=== PATIENT | male | born 1950 | race Caucasian/White ===

== ENCOUNTER 2017-02-14 10:50 | Observation (INO) | payer OTHER ==
[~2017-02-14] VITALS: Ht 177.8 cm; Wt 83.0 kg
[2017-02-14 10:51] VITALS: BP 154/84; PULSE 68; RESP 20; TEMP 98; O2SAT 99
--- NOTE | 2017-02-14 11:42 | RADRPT ---
EXAM DATE/TIME: 02/14/2017 11:32 [place] COMPARISON: No previous studies available for comparison. INDICATIONS : Dizziness and weakness today. Chest pain and high blood pressure MEDICAL HISTORY : Hypertension. Hypercholesterolemia. SURGICAL HISTORY : None. ENCOUNTER: Initial ACUITY: 2 days PAIN SCORE: 0/10 LOCATION: Bilateral chest FINDINGS: PA and lateral views of the chest demonstrate the lungs to be symmetrically aerated without evidence of mass, infiltrate or effusion. The cardiomediastinal contours are unremarkable. Osseous structure s are intact. CONCLUSION: No acute disease. Miguel Carlos MD FACR on February 14, 2017 at 11:41 Board Certified Radiologist. This report was verified electronically.
[2017-02-14 12:07] LABS: AUTOMATED NEUTROPHIL # 3.6 TH/MM3 (1.8-7.7); BASOPHIL % 0.3 % (0.0-2.0); EOSINOPHIL % 0.5 % (0.0-4.0); HEMATOCRIT 44.1 % (39.0-51.0); HEMO FLAGS DIFF FINAL; LYMPH % 19.5 % (9.0-44.0); MEAN CELL VOLUME 88.6 FL (80.0-100.0); MEAN CORPUSCULAR HEMOGLOBIN 30.2 PG (27.0-34.0); MEAN CORPUSCULAR HGB CONC 34.1 % (32.0-36.0); MONO % 10.8 % (0.0-8.0); NEUT % 68.9 % (16.0-70.0); PLATELET COUNT 191 TH/MM3 (150-450); RED BLOOD COUNT 4.98 MIL/MM3 (4.50-5.90); RED CELL DISTRIBUTION WIDTH 13.5 % (11.6-17.2); WHITE BLOOD COUNT 5.3 TH/MM3 (4.0-11.0)
[2017-02-14 12:11] LABS: APTT (PATIENT) 24.8 SEC (24.3-30.1); PROTHROMBIN TIME - PATIENT 10.8 SEC (9.8-11.6)
[2017-02-14 12:23] LABS: ANION GAP 8 MEQ/L (5-15); AST (GOT) 22 U/L (15-37); BICARBONATE 27.5 MEQ/L (21.0-32.0); BLOOD UREA NITROGEN 15 MG/DL (7-18); CHLORIDE 104 MEQ/L (98-107); GLOMERULAR FILTRATION RATE 49 ML/MIN (>89); MAGNESIUM 2.5 MG/DL (1.5-2.5); POTASSIUM 4.3 MEQ/L (3.5-5.1); SODIUM (NA) 139 MEQ/L (136-145)
[2017-02-14 12:29] LABS: ALKALINE PHOSPHATASE 65 U/L (45-117); ALT (GPT) 34 U/L (12-78); CREATINE KINASE 170 U/L (39-308); TOTAL BILIRUBIN ADULT 0.4 MG/DL (0.2-1.0)
[2017-02-14 14:46] VITALS: BP 185/86; PULSE 65; RESP 19; O2SAT 98
[2017-02-14] MEDS ORDERED: ASPIRIN 325 MG TAB PO ONE (15:15)
--- NOTE | 2017-02-14 15:19 | PD ---
HPI Chief Complaint: Chest Pain Time Seen by Provider: 14:52 Travel History International Travel<30 days: No Contact w/Intl Traveler<30days: No Traveled to known affect area: No History of Present Illness HPI 66yo M with no significant PMH presents to the ED with c/o midsternal chest pain yesterday. States it lasted a few hours and checked his blood pressure and found it to be elevated with systolic in the 160s. Pt denies any radiation of pain, sob, n/v, abdominal pain, focal weakness or numbness. Chest pain resolved on its own. Pt woke up this morning and does not feel well. Cannot explain but denies any chest pain. Pt went to PMD Dr. Ricks's office and was sent to the ED for further evaluation. PFSH Past Medical History Diabetes: No ?: Not Social History Alcohol Use: No Tobacco Use: No Substance Use: No Allergies-Medications (Allergen,Severity, Reaction): Coded Allergies: No Known Allergies (Unverified , 02/14/17) Reported Meds & Prescriptions Reported Meds & Active Scripts Active No Active Prescriptions or Reported Medications Review of Systems Except as stated in HPI: all other systems reviewed are Neg Physical Exam Narrative GENERAL: 66yo M not in distress. SKIN: Focused skin assessment warm/dry. HEAD: Atraumatic. Normocephalic. EYES: Pupils equal and round. No scleral icterus. No injection or drainage. ENT: No nasal bleeding or discharge. Mucous membranes pink and moist. NECK: Trachea midline. No JVD. CARDIOVASCULAR: Regular rate and rhythm. No murmur appreciated. RESPIRATORY: No accessory muscle use. Clear to auscultation. Breath sounds equal bilaterally. GASTROINTESTINAL: Abdomen soft, non-tender, nondistended. MUSCULOSKELETAL: No obvious deformities. No clubbing. No cyanosis. No edema. NEUROLOGICAL: Awake and alert. No obvious cranial nerve deficits. Motor grossly within normal limits. Normal speech. PSYCHIATRIC: Appropriate mood and affect; insight and judgment normal. Data Data Last Documented VS Vital Signs Date Time Temp Pulse Resp B/P Pulse Ox O2 Delivery O2 Flow Rate FiO2 02/14/17 14:46 65 19 185/86 98 Room Air 02/14/17 10:51 98.0 Orders Electrocardiogram (02/14/17 11:18) Ckmb (Isoenzyme) Profile (02/14/17 11:18) Complete Blood Count With Diff (02/14/17 11:18) Comprehensive Metabolic Panel (02/14/17 11:18) Magnesium (Mg) (02/14/17 11:18) Prothrombin Time / Inr (Pt) (02/14/17 11:18) Act Partial Throm Time (Ptt) (02/14/17 11:18) Troponin I (02/14/17 11:18) Chest, Pa & Lat (02/14/17 11:18) CKMB (02/14/17 11:46) CKMB% (02/14/17 11:46) Aspirin (Aspirin) (02/14/17 15:15) Admit Order (Ed Use Only) (02/14/17 15:22) Labs Laboratory Tests Test 02/14/17 11:46 White Blood Count 5.3 TH/MM3 Red Blood Count 4.98 MIL/MM3 Hemoglobin 15.1 GM/DL Hematocrit 44.1 % Mean Corpuscular Volume 88.6 FL Mean Corpuscular Hemoglobin 30.2 PG Mean Corpuscular Hemoglobin 34.1 % Concent Red Cell Distribution Width 13.5 % Platelet Count 191 TH/MM3 Mean Platelet Volume 9.1 FL Neutrophils (%) (Auto) 68.9 % Lymphocytes (%) (Auto) 19.5 % Monocytes (%) (Auto) 10.8 % Eosinophils (%) (Auto) 0.5 % Basophils (%) (Auto) 0.3 % Neutrophils # (Auto) 3.6 TH/MM3 Lymphocytes # (Auto) 1.0 TH/MM3 Monocytes # (Auto) 0.6 TH/MM3 Eosinophils # (Auto) 0.0 TH/MM3 Basophils # (Auto) 0.0 TH/MM3 CBC Comment DIFF FINAL Differential Comment Prothrombin Time 10.8 SEC Prothromb Time International 1.0 RATIO Ratio Activated Partial 24.8 SEC Thromboplast Time Sodium Level 139 MEQ/L Potassium Level 4.3 MEQ/L Chloride Level 104 MEQ/L Carbon Dioxide Level 27.5 MEQ/L Anion Gap 8 MEQ/L Blood Urea Nitrogen 15 MG/DL Creatinine 1.44 MG/DL Estimat Glomerular Filtration 49 ML/MIN Rate Random Glucose 95 MG/DL Calcium Level 9.3 MG/DL Magnesium Level 2.5 MG/DL Total Bilirubin 0.4 MG/DL Aspartate Amino Transf 22 U/L (AST/SGOT) Alanine Aminotransferase 34 U/L (ALT/SGPT) Alkaline Phosphatase 65 U/L Total Creatine Kinase 170 U/L Creatine Kinase MB 1.0 NG/ML Troponin I LESS THAN 0.02 NG/ML Total Protein 7.9 GM/DL Albumin 4.2 GM/DL [facility] Medical Decision Making Medical Screen Exam Complete: Yes Emergency Medical Condition: Yes Interpretation(s) EKG: Sinus bradycardia at 59bpm. LAD. No ST segment elevation or depression. Differential Diagnosis ACS vs. musculoskeletal pain Narrative Course 66yo M with chest pain yesterday that lasted a few hours. Pt has never had similar chest pain or any cardiac history. Pt took aspirin 81mg at home so gave another 81mg in the ED. Pt saw his PMD today and he was concerned so sent him here to the ED. Labs reviewed, no leukocytosis. Troponin negative. Creatinine mildly elevated at 1.44. No prior to compare. CXR showed no acute disease. Given that pt has no prior cardiac work up, will admit pt to chest pain center for serial EKG and cardiac enzymes. Diagnosis Primary Impression: Chest pain Qualified Code: R07.9 - Chest pain, unspecified type Admitting Information Admitting Physician Requests: Observation Scripts No Active Prescriptions or Reported Meds Andreia Amin DO Feb 14, 2017 15:19 Andreia Amin DO Feb 14, 2017 15:19
[2017-02-14 16:00] VITALS: BP 156/80; PULSE 64; RESP 18; O2SAT 98
--- NOTE | 2017-02-14 16:35 | MH ---
cc: LIZBET DAWKINS MD DATE OF ADMISSION: 02/14/2017 HISTORY OF PRESENT ILLNESS This is a 66-year-old gentleman who presented to the hospital with chest discomfort. 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 His discomfort lasted for several hours and after he started work eventually it was relieved spontaneously. He worked this morning and still did not feel right. He saw his primary care doctor who suggested he come to the hospital for further evaluation. He feels well now. No associated shortness of breath, diaphoresis or nausea was present and he related to exacerbation by exercise or relief by rest. On presentation to the hospital, his electrocardiogram is normal and initial troponin is otherwise unremarkable. His risk factors for coronary disease include a family history with a brother who at 55 years of age of a myocardial infarction, although that brother had type 2 diabetes and was a heavy smoker. A second brother at age 65 of myocardial infarction but with a background of acute leukemia which was felt to contribute to the stress of his demise. His other brother also was a smoker. The patient himself is a never smoker. He has no history of hypertension, diabetes. He does know that a lipid profile was done in which his HDL was 36 and LDL was 160. ALLERGIES HE HAS NO ALLERGIES. MEDICATIONS He takes no medications. PHYSICAL EXAMINATION GENERAL: He is awake and alert, in no acute distress. VITAL SIGNS: His blood pressure is 180/80, pulse is 70 and regular. NECK: There is no neck vein distention. LUNGS: Clear. CARDIOVASCULAR: Reveals a regular, rate and rhythm with no murmur or gallop noted. EXTREMITIES: Reveal no edema. ASSESSMENT AND PLAN The patient has chest discomfort of uncertain etiology. We will plan a treadmill exercise test for further evaluation. He also has significant hypertension. Further recommendations will depend on the outcome of his exercise test. MD SARAH Weeks/TOMI /4:11 PM /4:15 PM
[2017-02-14] MEDS ORDERED: ACETAMINOPHEN/HYDROcodone 325 MG/7.5 MG TAB PO PRN (16:45)
[2017-02-14] MEDS ORDERED: SODIUM CHLORIDE 0.9% FLUSH 5 ML FLUSH IVF PRN (16:45)
[2017-02-14] MEDS ORDERED: ONDANSETRON HCL 4 MG/2 ML VIAL IV PRN (16:45)
[2017-02-14] MEDS ORDERED: ACETAMINOPHEN 500 MG CPLT PO PRN (16:45)
[2017-02-14] MEDS ORDERED: amLODIPine BESYLATE 5 MG TAB PO ONE (17:45)
[2017-02-14 17:47] VITALS: BP 155/76; PULSE 72; RESP 20; TEMP 98.2; O2SAT 97
[2017-02-14] MEDS ORDERED: ALPRAZolam 0.25 MG TAB PO PRN (18:00)
[2017-02-14] MEDS: METOPROLOL TARTRATE 25 MG TAB PO SCH (18:27)
[2017-02-14] MEDS: ATORVASTATIN 40 MG TAB PO SCH (18:27)
[2017-02-14 19:42] VITALS: BP 126/79; PULSE 53; RESP 18; TEMP 98.2; O2SAT 97
[2017-02-14 19:42] LABS: CREATINE KINASE 145 U/L (39-308)
[2017-02-14] MEDS: SODIUM CHLORIDE 0.9% FLUSH 5 ML FLUSH IVF SCH (21:00)
[2017-02-15 01:22] VITALS: BP 130/74; PULSE 60; RESP 18; O2SAT 97
[2017-02-15 03:41] VITALS: PULSE 57
[2017-02-15 05:20] LABS: BICARBONATE 27.3 MEQ/L (21.0-32.0); HDL CHOLESTEROL 38.6 MG/DL (40.0-60.0)
[2017-02-15] MEDS: METOPROLOL TARTRATE 25 MG TAB PO SCH (05:48)
[2017-02-15 07:48] VITALS: BP 127/74; PULSE 59; RESP 20; TEMP 97.8; O2SAT 100
[2017-02-15 08:00] VITALS: PULSE 57
[2017-02-15] MEDS: ATORVASTATIN 40 MG TAB PO SCH (08:16)
[2017-02-15] MEDS: SODIUM CHLORIDE 0.9% FLUSH 5 ML FLUSH IVF SCH (08:17)
--- NOTE | 2017-02-15 08:58 | HHI.PR ---
Subjective Remarks Pt denied chest pain at time of visit. He reported feeling "fine." Denied N/V/C/D Cough and shortness of breath were also denied. Objective Vitals Vital Signs Date Time Temp Pulse Resp B/P Pulse Ox O2 Delivery O2 Flow Rate FiO2 02/15/17 07:48 97.8 59 20 127/74 100 02/15/17 03:41 57 02/15/17 03:11 21 02/15/17 01:22 60 18 130/74 97 02/14/17 19:42 98.2 53 18 126/79 97 02/14/17 17:47 98.2 72 20 155/76 97 02/14/17 16:00 64 18 156/80 98 Room Air 02/14/17 14:46 65 19 185/86 98 Room Air 02/14/17 10:51 98.0 68 20 154/84 99 Room Air Result Diagram: 02/14/17 1146 02/15/17 0351 Imaging Last 24 hours Impressions Chest X-Ray 02/14/17 1118 Signed Impressions: Service Date/Time: Tuesday, February 14, 2017 11:32 - CONCLUSION: No acute disease. Miguel Carlos MD FACR Objective Remarks GENERAL: SKIN: Warm and dry. HEAD: Normocephalic. EYES: No scleral icterus. No injection or drainage. NECK: Supple, trachea midline. No JVD or lymphadenopathy. CARDIOVASCULAR: Regular rate and rhythm without murmurs, gallops, or rubs. RESPIRATORY: Breath sounds equal bilaterally. No accessory muscle use. GASTROINTESTINAL: Abdomen soft, non-tender, nondistended. MUSCULOSKELETAL: No cyanosis, or edema. BACK: Nontender without obvious deformity. Procedures Pt underwent cardiac treadmill stress test on 02/14/17. That report is not available at this time. Reading interventional radiology report, it was indicated pt developed mild upsloping depressions as well as had shortness of breath and fatigue. Interventional radiology has been consulted to perform a left heart catheterization. Medications and IVs Current Medications Medications (Trade) Dose Ordered Sig/Elvia Route Start Time Stop Time Status Last Admin (NS Flush) 2 ml UNSCH PRN IVF 02/14/17 16:45 (NS Flush) 2 ml BID IVF 02/14/17 21:00 02/15/17 08:17 (Tylenol) 500 mg Q4H PRN PO 02/14/17 16:45 (Warner 7.5-325 Mg) 1 tab Q4H PRN PO 02/14/17 16:45 (Zofran Inj) 4 mg Q6H PRN IV 02/14/17 16:45 (Lopressor) 25 mg Q12H PO 02/14/17 18:00 02/14/17 18:27 (Norvasc) 5 mg DAILY PO 02/15/17 09:00 02/15/17 08:16 (Lipitor) 40 mg DAILY PO 02/14/17 17:45 02/15/17 08:16 (Aspirin) 325 mg DAILY PO 02/15/17 09:00 02/15/17 08:18 (Xanax) 0.25 mg Q8H PRN PO 02/14/17 18:00 Urinary Catheter: No Vascular Central Line Catheter: No A/P Assessment and Plan chest pain Pt to undergo cardiac catheterization today (02/15/17). Patient with CAD, cleared by Dr Amaya for DC recommends medical management Pt's troponin level was stable over the course of three draws; value less than 0.02. Hyperlipidemia: Cholesterol panel indicated total cholesterol of 234 with LDL value of 176. Statin likely to be initiated. Acute kidney injury: Creatinine level was elevated upon admission and upon draw this morning. GFR depressed at 53. No previous visits to compare current levels. Would advise hydration with an eye towards limiting hydration in order to not tax the heart. Written by Dimitri Carpio, acting as scribe for Dr. Burks on 02/15/17 at 05:52. This note was transcribed by scribe Dimitri MCKEON. I, Dr. Sunita Burks personally performed the history, physical exam, and medical decision making; and confirmed the accuracy of the information in the transcribed note. Authenticated by Dr. Sunita Burks on 02/15/17 at 05:52. Discharge Planning DC home in good condition To follow up as OP with PCP and cardiology Meds per med reconciliations Activity ad argenis as cristofer Diet: Healthy heart diet DC time > 30 min Dimitri Carpio Jr. Feb 15, 2017 08:58 Sunita Burks MD Feb 15, 2017 11:25
[2017-02-15] MEDS ORDERED: amLODIPine BESYLATE 5 MG TAB PO SCH (09:00)
[2017-02-15] MEDS ORDERED: ASPIRIN 325 MG TAB PO SCH (09:00)
[2017-02-15] MEDS ORDERED: IOHEXOL 350 MG/ML 50 ML BTL (for Cath Lab) OTHER ONE (09:08)
[2017-02-15] MEDS ORDERED: MIDAZOLAM HCL 2 MG/2 ML VIAL ONE (09:14)
[2017-02-15] MEDS ORDERED: NITROGLYCERIN INJ 5 ML ONE (09:15)
[2017-02-15] MEDS ORDERED: VERAPAMIL HCL 5 MG/2 ML VIAL ONE (09:15)
[2017-02-15] MEDS ORDERED: HEPARIN SODIUM - IV 10,000 UNITS/10 ML VIAL ONE (09:15)
--- NOTE | 2017-02-15 10:49 | MB ---
cc: MAGDALENE FRANKLIN DATE OF CONSULTATION 02/15/2017 DATE OF 1950 REASON FOR CONSULTATION Interventional cardiology consult HISTORY OF PRESENT ILLNESS 66-year-old male with a past medical history significant for hypertension. He indicates that he presented to the emergency department yesterday with concerns of high blood pressure and a couple of days of atypical chest pain. He was evaluated in the chest pain center. He got a treadmill stress test yesterday. He was seen by Dr. Grimaldo of cardiology. Stress test nondiagnostic for ischemia. The stress test was discontinued after achieving target maximum heart rate. Interventional cardiology has been consulted for a left heart cath. Currently, he reports feeling well. He denies any chest pain or any events. He has been tolerating current medications. REVIEW OF SYSTEMS Negative except for what is mentioned in the HPI. PAST MEDICAL HISTORY Hypertension HOME MEDICATIONS None ALLERGIES NO KNOWN DRUG ALLERGIES. FAMILY HISTORY Has a brother who had an HI at age 55, however, the brother was a smoker and also had diabetes. Mother had heart failure and at age 85. PHYSICAL EXAMINATION Temperature 97, pulse 59, respiratory rate 20, blood pressure 127/74, O2 sats 100% room air. GENERAL: Awake, alert and oriented x3 in no acute distress. NECK: No JVD or carotid bruits. HEART: Regular rate and rhythm. No murmurs, rubs or gallops. LUNGS: Clear to auscultation bilaterally. ABDOMEN: Positive bowel sounds, soft, nontender, and nondistended. EXTREMITIES: No cyanosis or edema. Pulses throughout. DATA CBC hemoglobin 15, hematocrit 44, platelet count 191, INR 1. Chemistries sodium 141, potassium 4.0, BUN 16, creatinine 1.3, troponin less than 2.02 x2. Cholesterol 234, LDL 176, HDL 38. Chest x-ray unremarkable and treadmill stress test as mentioned in HPI. ASSESSMENT/PLAN 66-year-old male presenting with hypertension and atypical chest pain with nondiagnostic exercise stress test consulted for left heart cath. Given the patient's cardiac risk factors including hypertension, age and undetermined stress test, I will recommend to do a left heart catheterization to further assess CAD. The risks and benefits of left heart cath/intervention including but not limited to neurovascular trauma, bleeding, infection, acute kidney injury, HI, emergent bypass surgery, stroke and have been explained to the patient. The patient understands the risks and he is willing to proceed. RECOMMENDATIONS 1. Keep n.p.o. 2. Continue aggressive medical manner for coronary artery disease. 3. Further therapy to be determined. MD LEONARDO Contreras/JAMIA /9:04 AM /10:30 AM [facility]
[2017-02-15] MEDS ORDERED: ASPI325T PO (11:18)
[2017-02-15] MEDS ORDERED: ATOR40TA16 PO (11:20)
[2017-02-15] MEDS ORDERED: AMLO5 PO (11:20)
[2017-02-15] MEDS ORDERED: METO25TA3 PO (11:20)
--- NOTE | 2017-02-15 11:21 | MA ---
cc: MAGDALENE FRANKLIN DATE 02/15/2017 DATE OF 1950 PROCEDURE PERFORMED 1. Left heart catheterization 2. Selective right and left coronary angiography 3. Left ventriculogram INDICATION Chest pain with an undetermined exercise stress test. PROCEDURE DESCRIPTION Consent signed. The patient was brought into the cardiac qc lab technician in a fasting state. Using 1% lidocaine for local anesthesia, a 6-Brazilian sheath was inserted into the right radial artery. Antispasmodic cocktail given, then selective right and left coronary angiography was performed with a JR-4 and JL-3.5 diagnostic catheters. Angiography was taken in multiple views. The JR-4 diagnostic catheter was introduced through the left ventricle over a wire. This was followed by pressure recordings, left ventriculogram and pullback. The patient tolerated the procedure well without complications. ESTIMATED BLOOD LOSS Less than 30 cc TOTAL CONTRAST USED 75 cc The right radial access site was closed with a TR band. ANGIOGRAPHIC RESULTS LEFT VENTRICLE The left ventricular pressure was 123/1 with an LVEDP of 9. The aortic pressure was 100/65 with a mean of 81. The left ventriculogram revealed a symmetrically lawrence ventricle with an estimated ejection fraction of 60%. There was no gradient upon pullback from the left ventricle to the aorta. ANGIOGRAPHY 1. Left main is patent with nonobstructive coronary artery disease. 2. LAD is a transapical vessel that has minimal luminal irregularities and tortuosity throughout. It has a diagonal that bifurcates right after the third septal. This diagonal goes all the way into the lateral wall and apex and has no obstructive coronary artery disease. 3. The left circumflex artery is patent with KYLE-III flow. It has minimal luminal irregularities, nonobstructive coronary artery disease and has a prominent OM-1. 4. The right coronary artery is a dominant vessel giving off the PDA. It is basically unremarkable with minimal luminal irregularities. CONCLUSION 1. Nonobstructive coronary artery disease 2. Preserved LV systolic function with estimated ejection fraction of 60%. RECOMMENDATIONS The patient should get aggressive primary prevention for coronary artery disease , therapeutic left lifestyle changes. MD LEONARDO Contreras/JAMIA /10:01 AM /11:11 AM MTDD
--- NOTE | 2017-02-15 11:21 | HHI.DCPOC ---
Discharge Care Plan Goals to Promote Your Health * To prevent worsening of your condition and complications * To maintain your health at the optimal level Directions to Meet Your Goals Take your medications as prescribed Follow your dietary instruction Follow activity as directed Keep your appointments as scheduled Take your immunizations and boosters as scheduled If your symptoms worsen call your PCP, if no PCP go to Urgent Care Center or Emergency Room Smoking is Dangerous to Your Health. Avoid second hand smoke Call the 24-hour hour crisis hotline for domestic abuse at Sunita Burks MD Feb 15, 2017 11:21
--- NOTE | 2017-02-15 11:22 | TR ---
Date Performed: 02/14/2017 Time Performed: 16:50:57 DOCTOR: Chidi Prajapati DRUG LIST: CLINICAL HISTORY: CHEST PAINS REASON FOR TEST: Chest pain REASON FOR ENDING: OBSERVATION: CONCLUSION: ABEBA PROTOCOL. NO CP. TEST STOPPED AFTER EXCEEDING GOAL HR SECONDARY TO SOB AND LEG FATIGUE.PT WAS HYPERTENSIVE.Maximum RW=144 % Max HR Achieved=93.0% Maximum MN=330/84 Total Exercise Time=5:58 COMMENTS: Conclusion: Normal treadmill exercise. No evidence of ischemia.
--- NOTE | 2017-02-15 13:09 | EKG ---
Date Performed: 02/14/2017 Time Performed: 18:23:21 PTAGE: 66 years EKG: Sinus rhythm NORMAL ECG NO PREVIOUS TRACING DOCTOR: Chidi Prajapati Interpretating Date/Time 02/15/2017 13:08:07
--- NOTE | 2017-02-15 13:10 | EKG ---
Date Performed: 02/14/2017 Time Performed: 11:39:59 PTAGE: 66 years EKG: SINUS BRADYCARDIA BORDERLINE ECG NO PREVIOUS TRACING DOCTOR: Chidi Prajapati Interpretating Date/Time 02/15/2017 13:09:21
== END 2017-02-15 14:09 | disposition home or self-care (01) ==
LOC: NEPE 10:50 → NEDA 15:23 → NEPGCP 16:38 → HCIS 02-15 09:12
PROVIDERS: ADMIT Hospitalist; ATTEND Hospitalist
DX: R07.9 Chest pain, unspecified (principal); I10 Essential (primary) hypertension; I25.10 Atherosclerotic heart disease of native coronary artery without angina pectoris; N17.9 Acute kidney failure, unspecified; R00.1 Bradycardia, unspecified
CPT/HCPCS: 71020; 80048; 80053; 80061; 82550; 82552; 83735; 84484; 85025; 85610; 85730; 93005; 93017; 93458; 99285; C1769; C1893; G0378; J1644; J2250; J3010; Q9967